=== PATIENT | male | born 1950 ===

== ENCOUNTER 2023-03-21 15:53 | Emergency (ER) | payer SELFPAY ==
--- NOTE | 2023-03-21 16:11 | ED.GENADULT ---
HPI - General Adult General Chief complaint: ETOH/Substance Use Stated complaint: seeking detox Related Data Allergies Allergy/AdvReac Type Severity Reaction Status Date / Time No Known Allergies Allergy Verified 03/21/23 16:11 [facility] Social History Social History Advance Directives: No Advance Directives Information Provided: No Physical Exam ED Vital Signs: BMI result Body Mass Index 26.6 Course Course Course Narrative: RME: 72yo M w/PMHx HTN, ETOH abuse, presenting to the ED seeking detox for ETOH. Admits to drinking 10 nips daily, last drink 2 hrs ago. Denies illicit drug use or hx withdrawal seizures. Denies SI/HI Labs, UA, Tox screen, Recovery consult ordered Full HPI, ROS and PE to be performed by primary ED provider. Discharge Plan Discharge Clinical Impression: Alcohol dependence Patient Disposition: Elopement Discharge Date/Time: 03/21/23 17:40
[2023-03-21 16:12] VITALS: BP 134/78; PULSE 82; RESP 18; TEMP 36.7; O2SAT 97; BMI 26.6
--- NOTE | 2023-03-21 16:43 | MHC.RECOVRN ---
T/w met with pt to discuss recovery resources. Pt reports 10 nip/day ETOH use, last drink a few hours [employer]. T/w attempted harm reduction education and education regarding symptoms of withdrawal. When pt informed there were no more open beds today, he became visbly upset and angry with t/w. Pt took folder, but unwilling to further engage with t/w. Walked out of triage to the waiting room with slow, steady gait.
--- NOTE | 2023-03-21 16:48 | MHC.EDTECH ---
This pct called on patient to come to triage but patient left without being seen. RN AWARE
== END 2023-03-21 17:40 | disposition left against medical advice (07) ==
PROVIDERS: Emergency Provider Emergency Medicine
DX: F10.20 Alcohol dependence, uncomplicated (principal); Y90.9 Presence of alcohol in blood, level not specified; I10 Essential (primary) hypertension
CPT/HCPCS: 99281